=== PATIENT | female | born 1990 | race Caucasian/White ===

== ENCOUNTER 2018-04-06 17:04 | Inpatient (IN) | payer OTHER, MEDICAID ==
[2018-04-06] MEDS ORDERED: MISOPROSTOL 200 MCG TAB PR (18:00)
[2018-04-06] MEDS ORDERED: METHYLERGONOVINE 0.2 MG INJ IM (18:00)
[2018-04-06] MEDS ORDERED: OXYTOCIN 30 UNITS/LR 500 ML IV ×2 (18:00)
[2018-04-06] MEDS ORDERED: BUTORPHANOL 2 MG INJ IV (18:00)
[2018-04-06] MEDS ORDERED: LIDOCAINE 1% (MPF) 30 ML INJ INJ (18:00)
[2018-04-06] MEDS ORDERED: CARBOPROST 250 MCG INJ IM (18:00)
[2018-04-06 18:51] LABS: ADD MAN DIFF? NO
[2018-04-06 18:53] LABS: WHITE BLOOD COUNT 9.1 10^3/ul (4.8-10.8)
[2018-04-06 18:53] LABS: BASOPHILS % 0.2 % (0.0-2.0); EOSINOPHILS # 0.1 10^3/ul (0.0-0.5); EOSINOPHILS % 0.8 % (0.0-7.0); HEMATOCRIT 37.8 % (37.0-47.0); HEMOGLOBIN 12.9 g/dl (12.0-16.0); LYMPHOCYTES # 1.8 10^3/ul (0.8-2.9); LYMPHOCYTES % 19.8 % (15.0-51.0); MEAN CORPUSCULAR HEMOGLOBIN 30.1 pg (29.0-33.0); MEAN CORPUSCULAR HGB CONC 34.1 g/dl (32.0-37.0); MEAN CORPUSCULAR VOLUME 88.1 fl (82.0-101.0); MEAN PLATELET VOLUME 11.7 fl (7.4-10.4); MONOCYTE # 0.6 10^3/ul (0.3-0.9); MONOCYTES % 6.8 % (0.0-11.0); NEUTROPHIL # 6.6 10^3/ul (1.6-7.5); NEUTROPHILS % 72.1 % (39.0-77.0); PLATELET COUNT 223 10^3/UL (140-415); RED BLOOD COUNT 4.29 10^6/ul (4.20-5.40); RED CELL DISTRIBUTION WIDTH 12.4 % (11.5-14.5)
[2018-04-06] MEDS: LACTATED RINGER'S 1,000 ML IV ×2 (19:03→22:07)
[2018-04-06] MEDS: AMPICILLIN 2 GM/NS (PMX) 100 ML IV (19:05)
[2018-04-06 19:14] LABS: INR 0.96; PROTIME 12.9 Sec (11.9-14.9)
[2018-04-06 19:15] LABS: PARTIAL THROMBOPLASTIN TIME 28.1 Sec (25.0-35.0)
[2018-04-06 20:01] LABS: RAPID PLASMA REAGIN NONREACTIVE (NR)
[2018-04-06] MEDS ORDERED: FENTAnyl 2MCG/ML-ROPIV 0.2% 100 ML (22:03)
[2018-04-06] MEDS: AMPICILLIN 1 GM/NS (PMX) 50 ML IV (22:07)
[2018-04-07] MEDS ORDERED: NALOXONE (0.4 MG/ML) INJ IV
[2018-04-07] MEDS ORDERED: DIPHENHYDRAMINE 50 MG INJ IV
[2018-04-07] MEDS: AMPICILLIN 1 GM/NS (PMX) 50 ML IV ×4 (02:02→14:10)
[2018-04-07] MEDS: FENTAnyl 2MCG/ML-ROPIV 0.2% 100 ML BAG EPI ×2 (04:53→14:44)
[2018-04-07] MEDS: LACTATED RINGER'S 1,000 ML IV ×3 (07:05→19:59)
[2018-04-07] MEDS: OXYTOCIN 30 UNITS/LR 500 ML IV ×3 (09:12→17:45)
[2018-04-07] MEDS: ACETAMINOPHEN 325 MG TAB PO (16:12)
[2018-04-07] MEDS ORDERED: OXYCODONE/ASPIRIN (4.88/325) TAB PO ×2 (18:00)
[2018-04-07] MEDS ORDERED: ONDANSETRON 4 MG INJ IV ×2 (18:00)
[2018-04-07] MEDS ORDERED: ACETAMINOPHEN 325 MG TAB PO (18:00)
[2018-04-07] MEDS ORDERED: HYDROCODONE/APAP (5/325) TAB PO (18:00)
[2018-04-07] MEDS: IBUPROFEN 600 MG TAB PO (18:17)
[2018-04-07] MEDS: WITCH HAZEL/GLYCERIN PAD PR (18:19)
[2018-04-07] MEDS: BENZOCAINE 20% 56 ML SPRAY TOP (18:19)
[2018-04-07] MEDS: DIBUCAINE 1% 30 GM OINT PR (18:20)
[2018-04-07] MEDS: LANOLIN 7 GM TUBE TOP (18:21)
[2018-04-07] MEDS: SENNA/DOCUSATE NA (8.6MG/50MG) TAB PO (21:27)
[2018-04-08] MEDS: IBUPROFEN 600 MG TAB PO ×5 (00:31→23:36)
[2018-04-08] MEDS: LACTATED RINGER'S 1,000 ML IV (03:30)
[2018-04-08] MEDS: HYDROCODONE/APAP (5/325) TAB PO ×3 (09:22→22:43)
[2018-04-08] MEDS: SENNA/DOCUSATE NA (8.6MG/50MG) TAB PO ×2 (09:22→21:01)
[2018-04-08 15:03] LABS: ADD MAN DIFF? NO
[2018-04-08 15:13] LABS: WHITE BLOOD COUNT 13.1 10^3/ul (4.8-10.8)
[2018-04-08 15:13] LABS: BASOPHILS % 0.2 % (0.0-2.0); EOSINOPHILS # 0.1 10^3/ul (0.0-0.5); EOSINOPHILS % 0.5 % (0.0-7.0); HEMATOCRIT 34.6 % (37.0-47.0); HEMOGLOBIN 11.6 g/dl (12.0-16.0); LYMPHOCYTES # 2.4 10^3/ul (0.8-2.9); LYMPHOCYTES % 18.2 % (15.0-51.0); MEAN CORPUSCULAR HEMOGLOBIN 30.4 pg (29.0-33.0); MEAN CORPUSCULAR HGB CONC 33.5 g/dl (32.0-37.0); MEAN CORPUSCULAR VOLUME 90.8 fl (82.0-101.0); MEAN PLATELET VOLUME 11.9 fl (7.4-10.4); MONOCYTE # 0.8 10^3/ul (0.3-0.9); MONOCYTES % 6.2 % (0.0-11.0); NEUTROPHIL # 9.7 10^3/ul (1.6-7.5); NEUTROPHILS % 74.4 % (39.0-77.0); PLATELET COUNT 195 10^3/UL (140-415); RED BLOOD COUNT 3.81 10^6/ul (4.20-5.40); RED CELL DISTRIBUTION WIDTH 12.7 % (11.5-14.5)
[2018-04-09] MEDS: IBUPROFEN 600 MG TAB PO ×2 (05:42→12:33)
[2018-04-09] MEDS: WITCH HAZEL/GLYCERIN PAD PR (06:05)
[2018-04-09] MEDS: BENZOCAINE 20% 56 ML SPRAY TOP (06:05)
[2018-04-09] MEDS: MEASLES,MUMPS,RUBELLA VACCINE INJ SC* (09:00)
[2018-04-09] MEDS: SENNA/DOCUSATE NA (8.6MG/50MG) TAB PO (09:19)
== END 2018-04-09 13:10 | disposition home or self-care (01) | DRG 775 ==
LOC: OBT 17:04 → PP1 04-07 16:43 → L-D 17:05 → PP1 04-07 16:52 → OBT 17:28 → L-D 17:15
PROVIDERS: Obstetrics & Gynecology
PROC: 10E0XZZ Delivery of Products of Conception, External Approach (ICD-10-PCS; principal; 2018-04-07)
DX: O34.219 Maternal care for unspecified type scar from previous cesarean delivery (principal); O99.214 Obesity complicating childbirth; E66.01 Morbid (severe) obesity due to excess calories; Z68.38 Body mass index [BMI] 38.0-38.9, adult; Z3A.39 39 weeks gestation of pregnancy; Z37.0 Single live birth
CPT/HCPCS: 62319; 76815; 76818; 85025; 85610; 85730; 86592; 86850; 86900; 86901; 88307; 99464